=== PATIENT | male | born 1980 | race American Indian/Alaskan Native ===

== ENCOUNTER 2021-08-20 12:54 | Emergency (ER) | payer BC ==
[2021-08-20] MEDS ORDERED: HYDROcodone/ACETAMINOPHEN 5-325 MG TAB PO ONE (13:12)
--- NOTE | 2021-08-20 13:49 | XRay Report ---
LEFT RIBS 4 VIEWS INDICATION: Left rib pain.. COMPARISON: None available. FINDINGS: RIBS: No acute, displaced fracture or other acute abnormality. CHEST: No acute findings. No pneumothorax. ADDITIONAL FINDINGS: No additional significant findings. IMPRESSION: 1. No acute abnormality. Signer Name: Elijah Kulkarni MD Signed: 08/20/2021 1:45 PM Workstation Name: [id number]
--- NOTE | 2021-08-20 13:54 | Emergency Department Report ---
ED General Adult HPI - General Chief complaint: Back Pain/Injury Stated complaint: PAIN IN THE LEFT SIDE Time Seen by Provider: 08/20/21 12:59 Source: patient Mode of arrival: Ambulatory Limitations: No Limitations - History of Present Illness Initial comments: This is a pleasant 41-year-old male presents the emergency department chief complaint of left-sided rib pain after sneezing. He reports he has pain when he moves. He denies any pain up in his chest or shortness of breath. He denies any associated fever, chills, night sweats, headache, dizziness, blurry vision, nausea,, diarrhea, chest pain or shortness of breath, abdominal pain, melena, anesthesia, weakness or any other associated symptoms. He denies any known past medical history, current medication use or known allergies to medications. - Related Data Previous Rx's Medication Instructions Recorded Last Taken Type Acetaminophen with Codeine 1 each PO Q6HR #12 tablet 08/20/21 Unknown Rx [Acetaminophen-Codeine #4 TAB] Naproxen [Naprosyn TAB] 500 mg PO BID #20 tablet 08/20/21 Unknown Rx methOCARBAMOL [Robaxin TAB] 500 mg PO Q6H PRN #20 tablet 08/20/21 Unknown Rx Allergies Allergy/AdvReac Type Severity Reaction Status Date / Time No Known Allergies Allergy Verified 08/20/21 13:04 ED Review of Systems ROS: Stated complaint: PAIN IN THE LEFT SIDE Other details as noted in HPI Comment: All other systems reviewed and negative Constitutional: denies: chills, fever Eyes: denies: eye pain, eye discharge, vision change ENT: denies: ear pain, throat pain Respiratory: denies: cough, shortness of breath, wheezing Cardiovascular: denies: chest pain, palpitations Endocrine: no symptoms reported Gastrointestinal: denies: abdominal pain, nausea, diarrhea Genitourinary: denies: urgency, dysuria Musculoskeletal: denies: back pain, joint swelling, arthralgia Skin: denies: rash, lesions Neurological: denies: headache, weakness, paresthesias Psychiatric: denies: anxiety, depression Hematological/Lymphatic: denies: easy bleeding, easy bruising ED Past Medical Hx - Past Medical History Previous Medical History?: Yes Hx Asthma: Yes - Surgical History Past Surgical History?: No - Social History Smoking Status: Never Smoker Substance Use Type: Alcohol - Medications Home Medications: Home Medications Medication Instructions Recorded Confirmed Last Taken Type Acetaminophen with Codeine 1 each PO Q6HR #12 tablet 08/20/21 Unknown Rx [Acetaminophen-Codeine #4 TAB] Naproxen [Naprosyn TAB] 500 mg PO BID #20 tablet 08/20/21 Unknown Rx methOCARBAMOL [Robaxin TAB] 500 mg PO Q6H PRN #20 tablet 08/20/21 Unknown Rx ED Physical Exam - General Limitations: No Limitations General appearance: alert, in no apparent distress - Head Head exam: Present: atraumatic, normocephalic - Eye Eye exam: Present: normal appearance, PERRL, EOMI Pupils: Present: normal accommodation - ENT ENT exam: Present: normal exam, normal orophraynx, mucous membranes moist - Neck Neck exam: Present: normal inspection, full ROM. Absent: tenderness, meningismus - Respiratory Respiratory exam: Present: normal lung sounds bilaterally, chest wall tenderness (Tenderness palpation of the left lower chest wall. No deformity. No crepitus). Absent: respiratory distress, wheezes, rales, rhonchi, stridor - Cardiovascular Cardiovascular Exam: Present: regular rate, normal rhythm, normal heart sounds. Absent: systolic murmur, diastolic murmur, rubs, gallop - GI/Abdominal GI/Abdominal exam: Present: soft, normal bowel sounds. Absent: distended, tenderness, guarding, rebound, rigid - Rectal Rectal exam: Present: deferred - Extremities Exam Extremities exam: Present: normal inspection, full ROM, normal capillary refill. Absent: tenderness, calf tenderness - Back Exam Back exam: Present: normal inspection, full ROM. Absent: tenderness, CVA tenderness (R), CVA tenderness (L) - Neurological Exam Neurological exam: Present: alert, oriented X3, normal gait - Psychiatric Psychiatric exam: Present: normal affect, normal mood - Skin Skin exam: Present: warm, dry, intact, normal color. Absent: rash ED Course Vital Signs 08/20/21 13:03 Temperature 98.4 F Pulse Rate 84 Respiratory 16 Rate Blood Pressure 150/90 [Left] O2 Sat by Pulse 95 Oximetry ED Medical Decision Making - Radiology Data Radiology results: report reviewed, image reviewed cc: JYOTSNA BOJORQUEZ Fluoro Time In Minutes: LEFT RIBS 4 VIEWS INDICATION: Left rib pain.. COMPARISON: None available. FINDINGS: RIBS: No acute, displaced fracture or other acute abnormality. CHEST: No acute findings. No pneumothorax. ADDITIONAL FINDINGS: No additional significant findings. IMPRESSION: 1. No acute abnormality. Signer Name: Elijah Kulkarni MD Signed: 08/20/2021 1:45 PM Workstation Name: [id number] Transcribed By: MN Dictated By: Elijah Kulkarni MD Electronically Authenticated By: Elijah Kulkarni MD Signed Date/Time: 08/20/211344 DD/ 43 TD/TT: - Medical Decision Making Patient nontoxic in no acute distress. Vital signs are stable. X-ray of the chest and ribs are unremarkable. Patient is PERC negative and a low risk by Wells criteria. Patient had no CVA tenderness on exam and denies any urinary symptoms. We will treat the patient with anti-inflammatories, muscle relaxers and pain medication recommend outpatient follow-up with primary care doctor. Return to the ER with any change or worsening symptoms. Verbalized understand the diagnosis, treatment plan and follow-up instructions all his questions were answered. - Differential Diagnosis Strain, sprain, fracture Critical care attestation.: If time is entered above; I have spent that time in minutes in the direct care of this critically ill patient, excluding procedure time. ED Disposition Clinical Impression: Chest wall muscle strain Qualifiers: Encounter type: initial encounter Qualified Code(s): S29.011A - Strain of muscle and tendon of front wall of thorax, initial encounter Disposition: 01 HOME / SELF CARE / HOMELESS Is pt being admited?: No Condition: Stable Instructions: Muscle Strain, [id number] Prescriptions: Acetaminophen with Codeine [Acetaminophen-Codeine #4 TAB] 1 each PO Q6HR #12 tablet Naproxen [Naprosyn TAB] 500 mg PO BID #20 tablet methOCARBAMOL [Robaxin TAB] 500 mg PO Q6H PRN #20 tablet PRN Reason: Spasms Referrals: [facility] [Provider Group] - 3-5 Days VINNIE CROUCH MD [Staff Physician] - 3-5 Days Time of Disposition: 14:32
[2021-08-20 15:04] VITALS: BP 135/80
== END 2021-08-20 15:01 | disposition home or self-care (01) ==
LOC: ED 12:54
DX: S29.011A Strain of muscle and tendon of front wall of thorax, initial encounter (principal); J45.909 Unspecified asthma, uncomplicated; X58.XXXA Exposure to other specified factors, initial encounter; Y93.89 Activity, other specified; Y92.89 Other specified places as the place of occurrence of the external cause; Y99.8 Other external cause status
CPT/HCPCS: 99283